=== PATIENT | female | born 1980 ===

== ENCOUNTER 2021-12-28 08:51 | Observation (INO) ==
[2021-12-28] MEDS ORDERED: GLUCAGON 1 MG VIAL IM PRN (13:24)
[2021-12-28] MEDS ORDERED: ONDANSETRON 4 MG/2 ML VIAL IV PRN (13:28)
[2021-12-28] MEDS ORDERED: NITROGLYCERIN SL 0.4 MG TABLET SL PRN (13:28)
[2021-12-28] MEDS ORDERED: DEXTROSE 10% 250 ML BAG IV PRN (13:46)
[2021-12-28 14:14] LABS: Basophils % 0.2 % (0.0-0.8); Eosinophils # 0.1 10*3/uL (0.0-0.87); Eosinophils % 0.8 % (0.00-10.9); Hemoglobin 11.8 GM/DL (12.0-16.0); Immature Granulocytes % 0.4 %; Immature Granulocytes Absolute 0.04 #; Lymphocytes # 3.3 10*3/uL (1.4-4.0); Lymphocytes % 31.3 % (21.3-54.2); Mean Corpuscular HGB Conc 32.8 GM/DL (32-36); Mean Corpuscular Volume 90.9 FL (87-102); Mean Platelet Volume 10.7 FL (9.6-12.0); Monocytes % 6.1 % (1.7-12.7); Neutrophils % 61.2 % (38.7-73.9); Platelet Count 239 T/CUMM (130-400); Red Blood Count 3.96 MC/CUMM (3.8-5.5); Red Cell Distribution Width 12.5 % (9.3-17.3); White Blood Count 10.4 T/CUMM (4-12)
[2021-12-28 14:31] LABS: Alanine Aminotransferase 23 U/L (13-56); Albumin 2.7 G/DL (3.4-5.0); Alkaline Phosphatase 166 U/L (45-117); Aspartate Amino Transferase 19 U/L (0-37); Bilirubin,Total < 0.39 MG/DL (0.20-1.00); Blood Urea Nitrogen 16 MG/DL (7-18); Calcium 8.1 MG/DL (8.5-10.1); Carbon Dioxide 23 MMOL/L (21-32); Estimated Glom Filtration Rate 109 ML/MIN; Glucose 245 MG/DL (74-106); Osmolality,Calculated 283.7 MOS/KG (273-304); Potassium 3.9 MMOL/L (3.5-5.1); Sodium 138 MMOL/L (136-145); Total Protein 7.4 G/DL (6.4-8.2)
[2021-12-28] MEDS: ENOXAPARIN 120 MG/0.8 ML SYRINGE SUBCUT SCH (15:23)
[2021-12-28] MEDS: FUROSEMIDE 40 MG/4 ML VIAL IV SCH (15:24)
[2021-12-28] MEDS: INSULIN LISPRO 100 UNIT/ML SUBCUT SCH (16:15)
[2021-12-28] MEDS: INSULIN REGULAR 100 UNIT/ML SUBCUT SCH ×2 (16:18→21:17)
[2021-12-28 17:11] LABS: Barbiturates Screen,Urine Negative (Negative); Benzodiazepines Screen,Urine Negative (Negative); Cannabinoid Screen,Urine Negative (Negative); Opiate Screen,Urine Positive (Negative); Phencyclidine Screen,Urine Negative (Negative)
[2021-12-28] MEDS ORDERED: INSULIN GLARGINE 100 UNIT/ML SUBCUT SCH (21:00)
[2021-12-28] MEDS ORDERED: hydrALAZINE 10 MG TABLET PO SCH (21:00)
[2021-12-28] MEDS ORDERED: carvediloL 12.5 MG TABLET PO SCH (21:00)
[2021-12-29] MEDS ORDERED: TOPIRAMATE 25 MG TABLET PO ONE (04:34)
[2021-12-29] MEDS: ENOXAPARIN 120 MG/0.8 ML SYRINGE SUBCUT SCH (05:07)
[2021-12-29 06:06] LABS: Basophils % 0.2 % (0.0-0.8); Eosinophils # 0.1 10*3/uL (0.0-0.87); Eosinophils % 1.5 % (0.00-10.9); Hematocrit 35.5 VOL% (35.7-47.0); Hemoglobin 11.6 GM/DL (12.0-16.0); Immature Granulocytes % 0.3 %; Immature Granulocytes Absolute 0.03 #; Lymphocytes # 3.6 10*3/uL (1.4-4.0); Lymphocytes % 38.7 % (21.3-54.2); Mean Corpuscular HGB Conc 32.7 GM/DL (32-36); Mean Corpuscular Volume 91.5 FL (87-102); Mean Platelet Volume 11.9 FL (9.6-12.0); Monocytes % 6.7 % (1.7-12.7); Neutrophils % 52.6 % (38.7-73.9); Platelet Count 243 T/CUMM (130-400); Red Blood Count 3.88 MC/CUMM (3.8-5.5); Red Cell Distribution Width 12.8 % (9.3-17.3); White Blood Count 9.3 T/CUMM (4-12)
[2021-12-29 06:07] LABS: PT Patient Result 11.4 SECS (10.5-12.0); Partial Thromboplastin Time 33.2 SECS (23.8-32.1)
[2021-12-29 06:33] LABS: Alanine Aminotransferase 19 U/L (13-56); Albumin 2.6 G/DL (3.4-5.0); Alkaline Phosphatase 151 U/L (45-117); Aspartate Amino Transferase 26 U/L (0-37); Bilirubin,Total < 0.39 MG/DL (0.20-1.00); Blood Urea Nitrogen 21 MG/DL (7-18); Calcium 8.4 MG/DL (8.5-10.1); Carbon Dioxide 25 MMOL/L (21-32); Estimated Glom Filtration Rate 95 ML/MIN; Glucose 193 MG/DL (74-106); HDL Cholesterol 28 MG/DL (40-60); Osmolality,Calculated 282.7 MOS/KG (273-304); Potassium 3.6 MMOL/L (3.5-5.1); Risk Ratio 4.39; Sodium 138 MMOL/L (136-145); Total Protein 7.2 G/DL (6.4-8.2); Triglycerides 171 MG/DL (2-150); VLDL Cholesterol 34.2 MG/DL
[2021-12-29 08:34] VITALS: BP 159/63
[2021-12-29] MEDS: INSULIN REGULAR 100 UNIT/ML SUBCUT SCH (08:38)
[2021-12-29] MEDS ORDERED: lisinopriL 5 MG TABLET PO SCH (09:00)
[2021-12-29] MEDS ORDERED: BACILLUS COAGULANS CAPLET PO SCH (09:00)
[2021-12-29] MEDS ORDERED: CETIRIZINE 10 MG TABLET PO SCH (09:00)
[2021-12-29] MEDS ORDERED: TOPIRAMATE 25 MG TABLET PO SCH (09:00)
[2021-12-29] MEDS ORDERED: ROSUVASTATIN 20 MG TABLET PO SCH (09:00)
[2021-12-29] MEDS ORDERED: PANTOPRAZOLE 40 MG TABLET PO SCH (09:00)
[2021-12-29] MEDS ORDERED: FUROSEMIDE 40 MG TABLET PO SCH (09:00)
[2021-12-29] MEDS ORDERED: carvediloL 25 MG TABLET PO SCH (09:00)
[2021-12-29] MEDS ORDERED: hydroCHLOROthiazide 12.5 MG CAPSULE PO SCH (09:00)
[2021-12-29] MEDS ORDERED: ASPIRIN EC 325 MG TABLET PO SCH (09:00)
[2021-12-29] MEDS ORDERED: lisinopriL 2.5 MG TABLET PO SCH (09:00)
[2021-12-29] MEDS ORDERED: amLODIPine 2.5 MG TABLET PO SCH (09:00)
[2021-12-29] MEDS: INSULIN LISPRO 100 UNIT/ML SUBCUT SCH (09:01)
[2021-12-29] MEDS: FUROSEMIDE 40 MG/4 ML VIAL IV SCH (09:02)
== END 2021-12-29 12:59 | disposition home or self-care (01) ==
LOC: N.TELES → SUATTDRO 11:28
PROVIDERS: ADMIT Internal Medicine; ATTEND Internal Medicine

== ENCOUNTER 2022-09-15 01:03 | Inpatient (IN) ==
[2022-09-15 01:53] LABS: Basophils % 0.2 % (0.0-0.8); Eosinophils # 0.2 10*3/uL (0.0-0.87); Eosinophils % 1.9 % (0.00-10.9); Hematocrit 35.9 VOL% (35.7-47.0); Hemoglobin 11.8 GM/DL (12.0-16.0); Immature Granulocytes % 0.3 %; Immature Granulocytes Absolute 0.04 #; Lymphocytes # 5.4 10*3/uL (1.4-4.0); Lymphocytes % 45.3 % (21.3-54.2); Mean Corpuscular HGB Conc 32.9 GM/DL (32-36); Mean Corpuscular Volume 91.1 FL (87-102); Mean Platelet Volume 11.1 FL (9.6-12.0); Monocytes # 0.8 10*3/uL (0.11-0.8); Monocytes % 6.3 % (1.7-12.7); Platelet Count 249 T/CUMM (130-400); Red Blood Count 3.94 MC/CUMM (3.8-5.5); Red Cell Distribution Width 13.4 % (9.3-17.3)
[2022-09-15 02:07] LABS: Alanine Aminotransferase 41 U/L (13-56); Albumin 3.1 G/DL (3.4-5.0); Alkaline Phosphatase 199 U/L (45-117); Aspartate Amino Transferase 44 U/L (0-37); Bilirubin,Total < 0.39 MG/DL (0.20-1.00); Blood Urea Nitrogen 23 MG/DL (7-18); Calcium 8.8 MG/DL (8.5-10.1); Carbon Dioxide 25 MMOL/L (21-32); Chloride 106 MMOL/L (98-107); Glucose 222 MG/DL (74-106); Osmolality,Calculated 283.8 MOS/KG (273-304); Sodium 137 MMOL/L (136-145); Total Protein 8.6 G/DL (6.4-8.2)
[2022-09-15] MEDS ORDERED: POTASSIUM CHLORIDE 20 MEQ TABLET PO STA (02:36)
[2022-09-15] MEDS ORDERED: ONDANSETRON 4 MG/2 ML VIAL IV PRN (03:41)
[2022-09-15] MEDS ORDERED: hydrALAZINE 20 MG/1 ML VIAL IV PRN (03:41)
[2022-09-15] MEDS ORDERED: FUROSEMIDE 40 MG/4 ML VIAL IV STA (03:41)
[2022-09-15] MEDS ORDERED: ACETAMINOPHEN 325 MG TABLET PO PRN (03:41)
[2022-09-15] MEDS ORDERED: ENOXAPARIN 100 MG/ML SYRINGE SUBCUT STA (03:41)
[2022-09-15 04:52] LABS: Risk Ratio 3.13; Thyroid Stimulating Hormone 3.23 uIU/ml (0.358-3.74); VLDL Cholesterol 31.4 MG/DL
[2022-09-15] MEDS ORDERED: POTASSIUM CHLORIDE 20 MEQ TABLET PO PRN (04:53)
[2022-09-15] MEDS ORDERED: diphenhydrAMINE CAP 50 MG CAPSULE PO ONE (09:21)
[2022-09-15] MEDS ORDERED: DIAZEPAM 5 MG TABLET PO ONE (09:21)
[2022-09-15] MEDS ORDERED: NITROGLYCERIN SL 0.4 MG TABLET SL PRN (09:31)
[2022-09-15] MEDS: INSULIN LISPRO 100 UNIT/ML SUBCUT SCH ×6 (09:37→22:23)
[2022-09-15] MEDS: PANTOPRAZOLE 40 MG TABLET PO SCH (09:48)
[2022-09-15 09:49] LABS: Calcium 8.6 MG/DL (8.5-10.1); Osmolality,Calculated 287.3 MOS/KG (273-304); Potassium 3.8 MMOL/L (3.5-5.1)
[2022-09-15] MEDS ORDERED: ALBUTEROL 2.5 MG/3 ML NEB RESP TX PRN (10:24)
[2022-09-15] MEDS: SODIUM CHLORIDE 0.45% 1,000 ML IV SCH ×3 (11:34→22:31)
[2022-09-15] MEDS: CLOPIDOGREL 75 MG TABLET PO SCH (11:34)
[2022-09-15] MEDS: ASPIRIN CHEW 81 MG TABLET PO SCH (11:35)
[2022-09-15] MEDS ORDERED: HYDROmorphone 1 MG/1 ML SYRINGE ONE ×3 (11:55→12:29)
[2022-09-15] MEDS ORDERED: MIDAZOLAM 2 MG/2 ML VIAL ONE (11:55)
[2022-09-15] MEDS ORDERED: ENOXAPARIN 30 MG/0.3 ML SYRINGE ONE (12:16)
[2022-09-15] MEDS ORDERED: LABETALOL 20 MG/4 ML SYRINGE IV ONE (12:31)
[2022-09-15] MEDS ORDERED: CLOPIDOGREL 300 MG TABLET ONE (12:33)
[2022-09-15] MEDS: MORPHINE 2 MG/1 ML SYRINGE IV PRN ×2 (16:28→22:32)
[2022-09-15] MEDS ORDERED: MORPHINE 2 MG/1 ML SYRINGE IV ONE (16:31)
[2022-09-15] MEDS ORDERED: KETOROLAC 30 MG/1 ML VIAL IV PRN (18:47)
[2022-09-15] MEDS: BACILLUS COAGULANS CAPLET PO SCH (21:00)
[2022-09-15] MEDS ORDERED: NON-FORMULARY MEDICATION (Omeprazole 20 MG capsule,delayed release(DR/EC)) PO SCH (21:00)
[2022-09-15] MEDS: carvediloL 3.125 MG TABLET PO SCH (21:01)
[2022-09-15] MEDS: ROSUVASTATIN 20 MG TABLET PO SCH (21:02)
[2022-09-15] MEDS: INSULIN GLARGINE 100 UNIT/ML SUBCUT SCH (21:05)
[2022-09-15] MEDS: amLODIPine 5 MG TABLET PO SCH (21:10)
[2022-09-15] MEDS: lisinopriL 20 MG TABLET PO SCH (21:11)
[2022-09-15] MEDS: CETIRIZINE 10 MG TABLET PO SCH (21:12)
[2022-09-15] MEDS: TOPIRAMATE 25 MG TABLET PO SCH (21:12)
[2022-09-16] MEDS: SODIUM CHLORIDE 0.45% 1,000 ML IV SCH ×2 (03:00→09:20)
[2022-09-16] MEDS: MORPHINE 2 MG/1 ML SYRINGE IV PRN ×3 (04:43→18:34)
[2022-09-16 05:20] LABS: Basophils % 0.2 % (0.0-0.8); Eosinophils # 0.1 10*3/uL (0.0-0.87); Eosinophils % 0.8 % (0.00-10.9); Hematocrit 23.8 VOL% (35.7-47.0); Hemoglobin 7.8 GM/DL (12.0-16.0); Immature Granulocytes % 0.4 %; Immature Granulocytes Absolute 0.05 #; Lymphocytes # 4.6 10*3/uL (1.4-4.0); Lymphocytes % 35.3 % (21.3-54.2); Mean Corpuscular HGB Conc 32.8 GM/DL (32-36); Mean Corpuscular Volume 92.6 FL (87-102); Mean Platelet Volume 11.1 FL (9.6-12.0); Monocytes # 0.9 10*3/uL (0.11-0.8); Monocytes % 6.8 % (1.7-12.7); Neutrophils % 56.5 % (38.7-73.9); Platelet Count 233 T/CUMM (130-400); Red Blood Count 2.57 MC/CUMM (3.8-5.5); Red Cell Distribution Width 13.3 % (9.3-17.3); White Blood Count 12.9 T/CUMM (4-12)
[2022-09-16 05:32] LABS: Calcium 8.1 MG/DL (8.5-10.1); Osmolality,Calculated 282.7 MOS/KG (273-304); Potassium 3.5 MMOL/L (3.5-5.1)
[2022-09-16] MEDS ORDERED: SODIUM CHLORIDE 0.9% 1,000 ML IV PRN ×2 (07:46→12:00)
[2022-09-16] MEDS: FUROSEMIDE 40 MG TABLET PO SCH (09:19)
[2022-09-16] MEDS: PANTOPRAZOLE 40 MG TABLET PO SCH (09:19)
[2022-09-16] MEDS: CLOPIDOGREL 75 MG TABLET PO SCH (09:19)
[2022-09-16] MEDS: INSULIN LISPRO 100 UNIT/ML SUBCUT SCH ×7 (09:19→21:49)
[2022-09-16] MEDS: ASPIRIN CHEW 81 MG TABLET PO SCH (09:19)
[2022-09-16] MEDS ORDERED: SODIUM CHLORIDE 0.45% 1,000 ML IV SCH (09:30)
[2022-09-16] MEDS: carvediloL 3.125 MG TABLET PO SCH (10:21)
[2022-09-16 11:57] LABS: CKMB % 5.97 %
[2022-09-16 12:02] LABS: High Sensitive Troponin I* 3303.2 ng/L (0-54)
[2022-09-16] MEDS ORDERED: HYDROmorphone 1 MG/1 ML SYRINGE IV ONE (12:23)
[2022-09-16] MEDS ORDERED: SODIUM CHLORIDE 0.9% 1,000 ML IV ONE (12:57)
[2022-09-16] MEDS ORDERED: diphenhydrAMINE CAP 50 MG CAPSULE PO ONE (14:00)
[2022-09-16] MEDS ORDERED: FAMOTIDINE 20 MG/2 ML VIAL IV ONE (14:01)
[2022-09-16] MEDS ORDERED: methylPREDNISolone SOD SUC 125 MG/2 ML VIAL IV ONE (14:01)
[2022-09-16 14:16] LABS: CKMB % 5.79 %; High Sensitive Troponin I* 3950.4 ng/L (0-54)
[2022-09-16 16:34] LABS: Bilirubin,Urine Negative (Negative); Blood, Urine Negative (Negative); Glucose,Urine (UA) Negative (Negative); Ketones,Urine Negative (Negative); Nitrite,Urine Negative (Negative); Protein,Urine 30 mg/dL (Negative); Urine Appearance Clear (Clear); Urine Color Yellow (Yellow); Urine Specific Gravity 1.015 (1.001-1.035); Urine Urobilinogen 0.2 eU/dL (<2.0); Urine pH 5.5 (4.5-8.0)
[2022-09-16 16:35] LABS: RBC,Urine <1 /HPF (0-4); Squamous Epithelial Cell,Urine Occasional /HPF (0-10)
[2022-09-16 16:36] LABS: Mucus,Urine Occasional /LPF (Occasional)
[2022-09-16] MEDS: carvediloL 6.25 MG TABLET PO SCH (17:51)
[2022-09-16] MEDS: ROSUVASTATIN 20 MG TABLET PO SCH (20:45)
[2022-09-16] MEDS: TOPIRAMATE 25 MG TABLET PO SCH (20:45)
[2022-09-16 20:47] LABS: Bilirubin,Total < 0.39 MG/DL (0.20-1.00); Blood Urea Nitrogen 20 MG/DL (7-18)
[2022-09-16] MEDS: CETIRIZINE 10 MG TABLET PO SCH (20:47)
[2022-09-16] MEDS: BACILLUS COAGULANS CAPLET PO SCH (20:47)
[2022-09-16] MEDS: lisinopriL 20 MG TABLET PO SCH (20:47)
[2022-09-16] MEDS: amLODIPine 5 MG TABLET PO SCH (20:47)
[2022-09-16] MEDS: INSULIN GLARGINE 100 UNIT/ML SUBCUT SCH (21:50)
[2022-09-17] MEDS: MORPHINE 2 MG/1 ML SYRINGE IV PRN ×4 (04:19→23:38)
[2022-09-17 05:19] LABS: Basophils % 0.1 % (0.0-0.8); Hematocrit 21.7 VOL% (35.7-47.0); Hemoglobin 7.1 GM/DL (12.0-16.0); Immature Granulocytes % 0.5 %; Immature Granulocytes Absolute 0.06 #; Lymphocytes # 1.9 10*3/uL (1.4-4.0); Lymphocytes % 16.2 % (21.3-54.2); Mean Corpuscular HGB Conc 32.7 GM/DL (32-36); Mean Corpuscular Volume 92.3 FL (87-102); Mean Platelet Volume 10.5 FL (9.6-12.0); Monocytes # 1.1 10*3/uL (0.11-0.8); Monocytes % 9.2 % (1.7-12.7); Platelet Count 215 T/CUMM (130-400); Red Blood Count 2.35 MC/CUMM (3.8-5.5); Red Cell Distribution Width 13.3 % (9.3-17.3); White Blood Count 11.7 T/CUMM (4-12)
[2022-09-17 05:36] LABS: Calcium 8.3 MG/DL (8.5-10.1); Osmolality,Calculated 289.7 MOS/KG (273-304); Potassium 3.6 MMOL/L (3.5-5.1)
[2022-09-17 08:12] LABS: % Iron Saturation 15.5 % (18-50); Ferritin 68.4 ng/mL (8-252)
[2022-09-17 08:18] LABS: Vitamin B12 337 PG/ML (211-911)
[2022-09-17 08:22] LABS: Basophils % 0.1 % (0.0-0.8); Hematocrit 22.6 VOL% (35.7-47.0); Hemoglobin 7.2 GM/DL (12.0-16.0); Immature Granulocytes % 0.6 %; Immature Granulocytes Absolute 0.08 #; Lymphocytes % 21.8 % (21.3-54.2); Mean Corpuscular HGB Conc 31.9 GM/DL (32-36); Mean Platelet Volume 10.6 FL (9.6-12.0); Monocytes # 1.2 10*3/uL (0.11-0.8); Monocytes % 8.7 % (1.7-12.7); Neutrophils % 68.8 % (38.7-73.9); Platelet Count 223 T/CUMM (130-400); Red Blood Count 2.43 MC/CUMM (3.8-5.5); Red Cell Distribution Width 13.4 % (9.3-17.3); White Blood Count 13.6 T/CUMM (4-12)
[2022-09-17] MEDS: PANTOPRAZOLE 40 MG TABLET PO SCH (08:53)
[2022-09-17] MEDS: FUROSEMIDE 40 MG TABLET PO SCH (08:53)
[2022-09-17] MEDS: CLOPIDOGREL 75 MG TABLET PO SCH (08:53)
[2022-09-17] MEDS: ASPIRIN CHEW 81 MG TABLET PO SCH (08:53)
[2022-09-17] MEDS: carvediloL 6.25 MG TABLET PO SCH ×2 (08:54→17:48)
[2022-09-17] MEDS: INSULIN LISPRO 100 UNIT/ML SUBCUT SCH ×7 (08:55→21:30)
[2022-09-17 09:43] LABS: Sedimentation Rate-Westergren 133 MM/HR (0-20)
[2022-09-17] MEDS ORDERED: ACETAMINOPHEN 325 MG TABLET PO ONE (13:00)
[2022-09-17] MEDS ORDERED: methylPREDNISolone SOD SUC 125 MG/2 ML VIAL IV ONE (13:00)
[2022-09-17] MEDS ORDERED: SODIUM CHLORIDE 0.9% 1,000 ML IV PRN (13:01)
[2022-09-17] MEDS ORDERED: FERRIC GLUCONATE COMPLEX 125 MG in SODIUM CHLORIDE 0.9% 100 ML IV ONE (14:00)
[2022-09-17] MEDS ORDERED: FUROSEMIDE 40 MG/4 ML VIAL IV ONE ×2 (19:31→20:00)
[2022-09-17] MEDS ORDERED: CLORAZEPATE 3.75 MG TABLET PO PRN (19:39)
[2022-09-17] MEDS: ALBUTEROL/IPRATROPIUM 3 ML NEB RESP TX PRN (19:42)
[2022-09-17] MEDS: BACILLUS COAGULANS CAPLET PO SCH (21:30)
[2022-09-17] MEDS: ROSUVASTATIN 20 MG TABLET PO SCH (21:30)
[2022-09-17] MEDS: INSULIN GLARGINE 100 UNIT/ML SUBCUT SCH (21:31)
[2022-09-17] MEDS: TOPIRAMATE 25 MG TABLET PO SCH (21:31)
[2022-09-17] MEDS: CETIRIZINE 10 MG TABLET PO SCH (21:31)
[2022-09-17] MEDS: amLODIPine 5 MG TABLET PO SCH (21:31)
[2022-09-18] MEDS: ALBUTEROL/IPRATROPIUM 3 ML NEB RESP TX PRN (01:09)
[2022-09-18] MEDS: MORPHINE 2 MG/1 ML SYRINGE IV PRN ×3 (03:57→21:44)
[2022-09-18 05:04] LABS: Basophils % 0.1 % (0.0-0.8); Hematocrit 25.3 VOL% (35.7-47.0); Hemoglobin 8.2 GM/DL (12.0-16.0); Immature Granulocytes % 1.9 %; Immature Granulocytes Absolute 0.24 #; Lymphocytes # 1.7 10*3/uL (1.4-4.0); Lymphocytes % 13.1 % (21.3-54.2); Mean Corpuscular HGB Conc 32.4 GM/DL (32-36); Monocytes # 0.6 10*3/uL (0.11-0.8); Monocytes % 4.4 % (1.7-12.7); Neutrophils % 80.5 % (38.7-73.9); Platelet Count 229 T/CUMM (130-400); Red Blood Count 2.81 MC/CUMM (3.8-5.5); Red Cell Distribution Width 14.4 % (9.3-17.3); White Blood Count 12.8 T/CUMM (4-12)
[2022-09-18 05:27] LABS: Calcium 8.4 MG/DL (8.5-10.1); Osmolality,Calculated 298.3 MOS/KG (273-304)
[2022-09-18] MEDS: PANTOPRAZOLE 40 MG TABLET PO SCH (08:33)
[2022-09-18] MEDS: CLOPIDOGREL 75 MG TABLET PO SCH (08:33)
[2022-09-18] MEDS: carvediloL 6.25 MG TABLET PO SCH ×2 (08:33→18:56)
[2022-09-18] MEDS: ASPIRIN CHEW 81 MG TABLET PO SCH (08:33)
[2022-09-18] MEDS: FUROSEMIDE 40 MG TABLET PO SCH (08:34)
[2022-09-18] MEDS: INSULIN LISPRO 100 UNIT/ML SUBCUT SCH ×7 (08:35→21:45)
[2022-09-18] MEDS ORDERED: FUROSEMIDE 40 MG/4 ML VIAL IV ONE (11:05)
[2022-09-18] MEDS ORDERED: SODIUM CHLORIDE 0.9% 1,000 ML IV PRN (11:12)
[2022-09-18] MEDS ORDERED: methylPREDNISolone SOD SUC 125 MG/2 ML VIAL IV ONE (11:13)
[2022-09-18] MEDS ORDERED: diphenhydrAMINE CAP 50 MG CAPSULE PO ONE (11:13)
[2022-09-18] MEDS ORDERED: FAMOTIDINE 20 MG/2 ML VIAL IV ONE (11:14)
[2022-09-18] MEDS: BACILLUS COAGULANS CAPLET PO SCH (21:43)
[2022-09-18] MEDS: ROSUVASTATIN 20 MG TABLET PO SCH (21:43)
[2022-09-18] MEDS: TOPIRAMATE 25 MG TABLET PO SCH (21:44)
[2022-09-18] MEDS: CETIRIZINE 10 MG TABLET PO SCH (21:44)
[2022-09-18] MEDS: amLODIPine 5 MG TABLET PO SCH (21:44)
[2022-09-18] MEDS: INSULIN GLARGINE 100 UNIT/ML SUBCUT SCH (21:45)
[2022-09-19 04:43] LABS: Basophils % 0.1 % (0.0-0.8); Hematocrit 29.1 VOL% (35.7-47.0); Hemoglobin 9.6 GM/DL (12.0-16.0); Immature Granulocytes % 1.8 %; Immature Granulocytes Absolute 0.22 #; Lymphocytes # 1.7 10*3/uL (1.4-4.0); Lymphocytes % 13.5 % (21.3-54.2); Mean Corpuscular Volume 90.9 FL (87-102); Mean Platelet Volume 10.9 FL (9.6-12.0); Monocytes # 0.7 10*3/uL (0.11-0.8); Monocytes % 5.3 % (1.7-12.7); NRBC # 0.02 10*3/uL; Neutrophils % 79.3 % (38.7-73.9); Platelet Count 269 T/CUMM (130-400); Red Cell Distribution Width 14.5 % (9.3-17.3); White Blood Count 12.6 T/CUMM (4-12)
[2022-09-19 05:00] LABS: Calcium 8.6 MG/DL (8.5-10.1); Osmolality,Calculated 295.4 MOS/KG (273-304)
[2022-09-19] MEDS: FUROSEMIDE 40 MG TABLET PO SCH (08:10)
[2022-09-19] MEDS: MORPHINE 2 MG/1 ML SYRINGE IV PRN ×3 (08:10→23:44)
[2022-09-19] MEDS: carvediloL 6.25 MG TABLET PO SCH (08:10)
[2022-09-19] MEDS: PANTOPRAZOLE 40 MG TABLET PO SCH (08:10)
[2022-09-19] MEDS: ASPIRIN CHEW 81 MG TABLET PO SCH (08:10)
[2022-09-19] MEDS: CLOPIDOGREL 75 MG TABLET PO SCH (08:10)
[2022-09-19] MEDS: FERRIC GLUCONATE COMPLEX 125 MG in SODIUM CHLORIDE 0.9% 100 ML IV SCH (09:44)
[2022-09-19] MEDS: INSULIN LISPRO 100 UNIT/ML SUBCUT SCH ×7 (09:44→20:54)
[2022-09-19] MEDS ORDERED: FUROSEMIDE 40 MG/4 ML VIAL IV ONE (09:50)
[2022-09-19] MEDS: carvediloL 12.5 MG TABLET PO SCH (17:15)
[2022-09-19] MEDS: CETIRIZINE 10 MG TABLET PO SCH (20:54)
[2022-09-19] MEDS: BACILLUS COAGULANS CAPLET PO SCH (20:54)
[2022-09-19] MEDS: ROSUVASTATIN 20 MG TABLET PO SCH (20:54)
[2022-09-19] MEDS: TOPIRAMATE 25 MG TABLET PO SCH (20:54)
[2022-09-19] MEDS: amLODIPine 5 MG TABLET PO SCH (20:54)
[2022-09-19] MEDS: INSULIN GLARGINE 100 UNIT/ML SUBCUT SCH (20:55)
[2022-09-20 06:17] LABS: Calcium 8.4 MG/DL (8.5-10.1); Osmolality,Calculated 290.1 MOS/KG (273-304); Potassium 4.3 MMOL/L (3.5-5.1)
[2022-09-20] MEDS: MORPHINE 2 MG/1 ML SYRINGE IV PRN ×3 (06:32→23:30)
[2022-09-20 06:45] LABS: Basophils # 0.1 10*3/uL (0.0-0.2); Basophils % 0.3 % (0.0-0.8); Eosinophils # 0.5 10*3/uL (0.0-0.87); Eosinophils % 2.9 % (0.00-10.9); Hematocrit 28.5 VOL% (35.7-47.0); Hemoglobin 9.3 GM/DL (12.0-16.0); Immature Granulocytes % 0.7 %; Immature Granulocytes Absolute 0.12 #; Lymphocytes # 7.1 10*3/uL (1.4-4.0); Lymphocytes % 43.2 % (21.3-54.2); Mean Corpuscular HGB Conc 32.6 GM/DL (32-36); Mean Corpuscular Volume 92.2 FL (87-102); Mean Platelet Volume 10.4 FL (9.6-12.0); Monocytes # 1.1 10*3/uL (0.11-0.8); Monocytes % 6.8 % (1.7-12.7); Neutrophils % 46.1 % (38.7-73.9); Platelet Count 290 T/CUMM (130-400); Red Blood Count 3.09 MC/CUMM (3.8-5.5); White Blood Count 16.4 T/CUMM (4-12)
[2022-09-20 07:06] LABS: Eosinophils 5 % (0-10); Hypochromia Slight; Lymphocytes 38 % (20-55); Microcytosis 1+; Total Cells Counted 100
[2022-09-20 07:07] LABS: Ovalocytes Slight; Platelet Estimate Normal; Polychromasia Slight
[2022-09-20 08:46] LABS: Hemoglobin A1 (Alkaline) 97.2 % (96.5-98.5); Hemoglobin A2 (Alkaline) 2.8 % (1.5-3.5)
[2022-09-20] MEDS: INSULIN LISPRO 100 UNIT/ML SUBCUT SCH ×6 (09:14→21:33)
[2022-09-20] MEDS ORDERED: Semaglutide [Ozempic] 0.25 mg or 0.5 mg(2 mg/1.5 mL) Pen Injecto SUBCUT SCH (10:15)
[2022-09-20] MEDS ORDERED: ceFAZolin 2,000 MG/50 ML DUPLEX IV ONE (11:51)
[2022-09-20] MEDS: CLOPIDOGREL 75 MG TABLET PO SCH (12:05)
[2022-09-20] MEDS ORDERED: fentaNYL 100 MCG/2 ML VIAL ONE (12:28)
[2022-09-20] MEDS ORDERED: ONDANSETRON 4 MG/2 ML VIAL ONE (12:28)
[2022-09-20] MEDS ORDERED: propofoL 200 MG/20 ML VIAL IV ONE (12:28)
[2022-09-20] MEDS ORDERED: MIDAZOLAM 2 MG/2 ML VIAL ONE (12:28)
[2022-09-20] MEDS ORDERED: LIDOCAINE 2% 5 ML VIAL ONE (12:28)
[2022-09-20] MEDS ORDERED: LACTATED RINGERS 1,000 ML IV SCH (12:30)
[2022-09-20] MEDS ORDERED: BUPIVACAINE MPF 0.25% 10 ML VIAL ONE (12:33)
[2022-09-20] MEDS ORDERED: LIDOCAINE 1%/EPI INJ 20 ML VIAL ONE ×2 (12:34→12:38)
[2022-09-20] MEDS ORDERED: ePHEDrine 50 MG/ML VIAL ONE (13:01)
[2022-09-20] MEDS ORDERED: TISSUE ADHESIVE 1 EACH APPLICATOR TOP ONE (13:15)
[2022-09-20] MEDS ORDERED: ONDANSETRON 4 MG/2 ML VIAL IV PRN (13:55)
[2022-09-20] MEDS: HYDROmorphone 1 MG/1 ML SYRINGE IV PRN ×2 (14:03→14:15)
[2022-09-20] MEDS: ASPIRIN CHEW 81 MG TABLET PO SCH (15:20)
[2022-09-20] MEDS: FUROSEMIDE 40 MG TABLET PO SCH (15:20)
[2022-09-20] MEDS: carvediloL 12.5 MG TABLET PO SCH ×2 (15:20→18:03)
[2022-09-20] MEDS: PANTOPRAZOLE 40 MG TABLET PO SCH (15:21)
[2022-09-20] MEDS: FERRIC GLUCONATE COMPLEX 125 MG in SODIUM CHLORIDE 0.9% 100 ML IV SCH (15:22)
[2022-09-20] MEDS: BACILLUS COAGULANS CAPLET PO SCH (21:27)
[2022-09-20] MEDS: TOPIRAMATE 25 MG TABLET PO SCH (21:27)
[2022-09-20] MEDS: CETIRIZINE 10 MG TABLET PO SCH (21:28)
[2022-09-20] MEDS: ROSUVASTATIN 20 MG TABLET PO SCH (21:28)
[2022-09-20] MEDS: amLODIPine 5 MG TABLET PO SCH (21:28)
[2022-09-20] MEDS: INSULIN GLARGINE 100 UNIT/ML SUBCUT SCH (21:29)
[2022-09-21] MEDS: INSULIN LISPRO 100 UNIT/ML SUBCUT SCH ×9 (00:54→22:01)
[2022-09-21 05:28] LABS: Basophils % 0.3 % (0.0-0.8); Eosinophils # 0.8 10*3/uL (0.0-0.87); Eosinophils % 4.8 % (0.00-10.9); Hemoglobin 9.6 GM/DL (12.0-16.0); Immature Granulocytes % 0.5 %; Immature Granulocytes Absolute 0.08 #; Lymphocytes # 5.4 10*3/uL (1.4-4.0); Lymphocytes % 33.8 % (21.3-54.2); Mean Platelet Volume 10.3 FL (9.6-12.0); Monocytes # 1.1 10*3/uL (0.11-0.8); Monocytes % 7.2 % (1.7-12.7); Neutrophils % 53.4 % (38.7-73.9); Platelet Count 313 T/CUMM (130-400); Red Blood Count 3.19 MC/CUMM (3.8-5.5); Red Cell Distribution Width 14.7 % (9.3-17.3); White Blood Count 15.9 T/CUMM (4-12)
[2022-09-21 05:49] LABS: Calcium 8.2 MG/DL (8.5-10.1)
[2022-09-21] MEDS: CLOPIDOGREL 75 MG TABLET PO SCH (08:39)
[2022-09-21] MEDS: carvediloL 12.5 MG TABLET PO SCH ×2 (08:40→17:02)
[2022-09-21] MEDS: ASPIRIN CHEW 81 MG TABLET PO SCH (08:41)
[2022-09-21] MEDS: PANTOPRAZOLE 40 MG TABLET PO SCH (08:41)
[2022-09-21] MEDS: FUROSEMIDE 40 MG TABLET PO SCH (08:41)
[2022-09-21] MEDS: FERRIC GLUCONATE COMPLEX 125 MG in SODIUM CHLORIDE 0.9% 100 ML IV SCH (09:28)
[2022-09-21] MEDS ORDERED: MORPHINE 2 MG/1 ML SYRINGE IV PRN (12:31)
[2022-09-21] MEDS: CETIRIZINE 10 MG TABLET PO SCH (21:59)
[2022-09-21] MEDS: TOPIRAMATE 25 MG TABLET PO SCH (21:59)
[2022-09-21] MEDS: BACILLUS COAGULANS CAPLET PO SCH (21:59)
[2022-09-21] MEDS: amLODIPine 5 MG TABLET PO SCH (21:59)
[2022-09-21] MEDS: ROSUVASTATIN 20 MG TABLET PO SCH (22:00)
[2022-09-21] MEDS: INSULIN GLARGINE 100 UNIT/ML SUBCUT SCH (22:01)
[2022-09-21] MEDS: MORPHINE 2 MG/1 ML SYRINGE IV PRN (22:02)
[2022-09-22] MEDS: INSULIN LISPRO 100 UNIT/ML SUBCUT SCH ×7 (08:01→21:40)
[2022-09-22 08:26] LABS: Basophils % 0.2 % (0.0-0.8); Eosinophils # 0.5 10*3/uL (0.0-0.87); Eosinophils % 2.9 % (0.00-10.9); Hematocrit 30.3 VOL% (35.7-47.0); Hemoglobin 9.7 GM/DL (12.0-16.0); Immature Granulocytes % 0.6 %; Immature Granulocytes Absolute 0.12 #; Lymphocytes # 4.5 10*3/uL (1.4-4.0); Lymphocytes % 23.6 % (21.3-54.2); Mean Platelet Volume 10.2 FL (9.6-12.0); Monocytes # 1.2 10*3/uL (0.11-0.8); Monocytes % 6.5 % (1.7-12.7); Neutrophils % 66.2 % (38.7-73.9); Platelet Count 342 T/CUMM (130-400); Red Blood Count 3.19 MC/CUMM (3.8-5.5); Red Cell Distribution Width 15.1 % (9.3-17.3); White Blood Count 18.9 T/CUMM (4-12)
[2022-09-22] MEDS: CLOPIDOGREL 75 MG TABLET PO SCH (08:44)
[2022-09-22] MEDS: carvediloL 12.5 MG TABLET PO SCH ×2 (08:44→16:25)
[2022-09-22] MEDS: FERRIC GLUCONATE COMPLEX 125 MG in SODIUM CHLORIDE 0.9% 100 ML IV SCH (08:44)
[2022-09-22] MEDS: PANTOPRAZOLE 40 MG TABLET PO SCH (08:44)
[2022-09-22] MEDS: FUROSEMIDE 40 MG TABLET PO SCH (08:44)
[2022-09-22] MEDS: ASPIRIN CHEW 81 MG TABLET PO SCH (08:44)
[2022-09-22 08:48] LABS: Calcium 8.5 MG/DL (8.5-10.1); Osmolality,Calculated 281.4 MOS/KG (273-304)
[2022-09-22] MEDS: amLODIPine 5 MG TABLET PO SCH (21:40)
[2022-09-22] MEDS: MORPHINE 2 MG/1 ML SYRINGE IV PRN (21:40)
[2022-09-22] MEDS: TOPIRAMATE 25 MG TABLET PO SCH (21:40)
[2022-09-22] MEDS: CETIRIZINE 10 MG TABLET PO SCH (21:40)
[2022-09-22] MEDS: INSULIN GLARGINE 100 UNIT/ML SUBCUT SCH (21:40)
[2022-09-23] MEDS: ROSUVASTATIN 20 MG TABLET PO SCH (00:15)
[2022-09-23] MEDS: BACILLUS COAGULANS CAPLET PO SCH (00:15)
[2022-09-23 00:54] LABS: Mucus,Urine Occasional /LPF (Occasional); RBC,Urine 1 /HPF (0-4); Squamous Epithelial Cell,Urine Occasional /HPF (0-10)
[2022-09-23 00:57] LABS: Bilirubin,Urine Negative (Negative); Blood, Urine Negative (Negative); Glucose,Urine (UA) Negative (Negative); Ketones,Urine Negative (Negative); Nitrite,Urine Negative (Negative); Protein,Urine 100 mg/dL (Negative); Urine Appearance Clear (Clear); Urine Color Yellow (Yellow); Urine Specific Gravity 1.025 (1.001-1.035); Urine Urobilinogen 0.2 eU/dL (<2.0); Urine pH 6.5 (4.5-8.0)
[2022-09-23] MEDS: INSULIN LISPRO 100 UNIT/ML SUBCUT SCH ×4 (07:42→11:44)
[2022-09-23 07:49] VITALS: BP 136/80
[2022-09-23 08:17] LABS: Basophils % 0.1 % (0.0-0.8); Eosinophils # 0.5 10*3/uL (0.0-0.87); Eosinophils % 3.1 % (0.00-10.9); Hematocrit 27.6 VOL% (35.7-47.0); Hemoglobin 8.7 GM/DL (12.0-16.0); Immature Granulocytes % 0.5 %; Immature Granulocytes Absolute 0.08 #; Lymphocytes # 4.5 10*3/uL (1.4-4.0); Lymphocytes % 28.3 % (21.3-54.2); Mean Corpuscular HGB Conc 31.5 GM/DL (32-36); Mean Corpuscular Volume 94.8 FL (87-102); Mean Platelet Volume 10.1 FL (9.6-12.0); Monocytes # 1.1 10*3/uL (0.11-0.8); Platelet Count 303 T/CUMM (130-400); Red Blood Count 2.91 MC/CUMM (3.8-5.5); Red Cell Distribution Width 15.3 % (9.3-17.3)
[2022-09-23 08:38] LABS: Calcium 8.4 MG/DL (8.5-10.1); Osmolality,Calculated 285.3 MOS/KG (273-304); Potassium 4.1 MMOL/L (3.5-5.1)
[2022-09-23] MEDS: carvediloL 12.5 MG TABLET PO SCH (09:16)
[2022-09-23] MEDS: ASPIRIN CHEW 81 MG TABLET PO SCH (09:16)
[2022-09-23] MEDS: PANTOPRAZOLE 40 MG TABLET PO SCH (09:16)
[2022-09-23] MEDS: CLOPIDOGREL 75 MG TABLET PO SCH (09:16)
[2022-09-23] MEDS: FUROSEMIDE 40 MG TABLET PO SCH (09:17)
[2022-09-23] MEDS: FERRIC GLUCONATE COMPLEX 125 MG in SODIUM CHLORIDE 0.9% 100 ML IV SCH (09:18)
== END 2022-09-23 12:49 | disposition home health service (06) | DRG 174 ==
LOC: N.ED 01:03 → N.EDINP 01:03 → SUATTDRO 03:41 → N.TELEN 10:02
PROVIDERS: ADMIT Internal Medicine; ATTEND Internal Medicine

== ENCOUNTER 2022-09-30 13:20 | Inpatient (IN) ==
[2022-09-30] MEDS ORDERED: ONDANSETRON 4 MG/2 ML VIAL ONE (13:57)
[2022-09-30] MEDS ORDERED: PANTOPRAZOLE 40 MG VIAL IV STA (14:21)
[2022-09-30] MEDS ORDERED: ONDANSETRON 4 MG/2 ML VIAL IV STA (14:21)
[2022-09-30] MEDS ORDERED: SODIUM CHLORIDE 0.9% 1,000 ML IV PRN (14:22)
[2022-09-30 14:46] LABS: Basophils % 0.2 % (0.0-0.8); Eosinophils % 0.1 % (0.00-10.9); Hematocrit 24.4 VOL% (35.7-47.0); Hemoglobin 7.5 GM/DL (12.0-16.0); Immature Granulocytes % 0.6 %; Immature Granulocytes Absolute 0.09 #; Lymphocytes # 1.8 10*3/uL (1.4-4.0); Lymphocytes % 11.4 % (21.3-54.2); Mean Corpuscular HGB Conc 30.7 GM/DL (32-36); Mean Corpuscular Volume 98.4 FL (87-102); Mean Platelet Volume 9.9 FL (9.6-12.0); Monocytes # 0.5 10*3/uL (0.11-0.8); Monocytes % 3.1 % (1.7-12.7); Neutrophils % 84.6 % (38.7-73.9); Platelet Count 320 T/CUMM (130-400); Red Blood Count 2.48 MC/CUMM (3.8-5.5); Red Cell Distribution Width 15.4 % (9.3-17.3)
[2022-09-30 15:15] LABS: Albumin 2.5 G/DL (3.4-5.0); Bilirubin,Total 0.5 MG/DL (0.20-1.00); Calcium 8.2 MG/DL (8.5-10.1); Osmolality,Calculated 291.1 MOS/KG (273-304); Potassium 3.7 MMOL/L (3.5-5.1); Total Protein 6.8 G/DL (6.4-8.2)
[2022-09-30] MEDS ORDERED: ACETAMINOPHEN 325 MG TABLET PO PRN (15:30)
[2022-09-30] MEDS ORDERED: DOCUSATE SODIUM 100 MG CAPSULE PO PRN (15:30)
[2022-09-30] MEDS ORDERED: ALBUTEROL 2.5 MG/3 ML NEB RESP TX PRN (15:30)
[2022-09-30] MEDS ORDERED: guaiFENesin/DM ER 600-30 MG TABLET PO PRN (15:30)
[2022-09-30] MEDS ORDERED: hydrALAZINE 20 MG/1 ML VIAL IV PRN (15:30)
[2022-09-30] MEDS: FUROSEMIDE 40 MG/4 ML VIAL IV SCH (16:20)
[2022-09-30 17:01] LABS: Bacteria,Urine Occasional /HPF (Few); Mucus,Urine Occasional /LPF (Occasional); RBC,Urine <1 /HPF (0-4); Squamous Epithelial Cell,Urine Occasional /HPF (0-10)
[2022-09-30 17:03] LABS: Urine Appearance Clear (Clear); Urine Color Yellow (Yellow)
[2022-09-30 17:04] LABS: Bilirubin,Urine Negative (Negative); Blood, Urine Negative (Negative); Glucose,Urine (UA) Negative (Negative); Ketones,Urine Negative (Negative); Nitrite,Urine Negative (Negative); Protein,Urine Trace mg/dL (Negative); Urine Specific Gravity > 1.030 (1.001-1.035); Urine Urobilinogen 0.2 eU/dL (<2.0); Urine pH 5.5 (4.5-8.0)
[2022-09-30] MEDS: ONDANSETRON 4 MG/2 ML VIAL IV PRN (17:50)
[2022-09-30] MEDS: PANTOPRAZOLE 40 MG VIAL IV SCH (22:16)
[2022-10-01 05:03] LABS: Basophils % 0.3 % (0.0-0.8); Eosinophils # 0.1 10*3/uL (0.0-0.87); Eosinophils % 0.8 % (0.00-10.9); Hematocrit 23.5 VOL% (35.7-47.0); Hemoglobin 7.4 GM/DL (12.0-16.0); Immature Granulocytes % 0.6 %; Immature Granulocytes Absolute 0.08 #; Lymphocytes # 4.5 10*3/uL (1.4-4.0); Lymphocytes % 32.4 % (21.3-54.2); Mean Corpuscular HGB Conc 31.5 GM/DL (32-36); Monocytes # 0.9 10*3/uL (0.11-0.8); Monocytes % 6.6 % (1.7-12.7); Neutrophils % 59.3 % (38.7-73.9); Platelet Count 270 T/CUMM (130-400); Red Cell Distribution Width 16.5 % (9.3-17.3)
[2022-10-01 05:18] LABS: Calcium 8.2 MG/DL (8.5-10.1); Osmolality,Calculated 291.1 MOS/KG (273-304); Potassium 3.6 MMOL/L (3.5-5.1)
[2022-10-01] MEDS ORDERED: PANTOPRAZOLE 40 MG TABLET PO SCH (09:00)
[2022-10-01] MEDS: PANTOPRAZOLE 40 MG VIAL IV SCH ×2 (09:49→21:28)
[2022-10-01] MEDS: FUROSEMIDE 40 MG/4 ML VIAL IV SCH ×2 (09:49→15:07)
[2022-10-01] MEDS ORDERED: hydrOXYzine HCL 25 MG TABLET PO PRN (10:38)
[2022-10-01] MEDS ORDERED: CETIRIZINE 10 MG TABLET PO PRN (10:38)
[2022-10-01] MEDS ORDERED: NITROGLYCERIN SL 0.4 MG TABLET SL PRN (11:00)
[2022-10-01] MEDS ORDERED: MIDAZOLAM 2 MG/2 ML VIAL ONE (11:03)
[2022-10-01] MEDS ORDERED: ETOMIDATE 20 MG/10 ML VIAL IV ONE (11:13)
[2022-10-01] MEDS ORDERED: LIDOCAINE 2% 5 ML VIAL ONE (11:13)
[2022-10-01] MEDS ORDERED: propofoL 200 MG/20 ML VIAL IV ONE (11:13)
[2022-10-01] MEDS ORDERED: ONDANSETRON 4 MG/2 ML VIAL ONE (11:13)
[2022-10-01] MEDS: POLYETHYLENE GLYCOL POWDER 17 GM PACK PO SCH ×2 (14:18→21:31)
[2022-10-01] MEDS: carvediloL 12.5 MG TABLET PO SCH (16:32)
[2022-10-01] MEDS ORDERED: amLODIPine 5 MG TABLET PO SCH (21:00)
[2022-10-01] MEDS: ROSUVASTATIN 20 MG TABLET PO SCH (21:30)
[2022-10-01] MEDS: BACILLUS COAGULANS CAPLET PO SCH (21:30)
[2022-10-01] MEDS: ASPIRIN CHEW 81 MG TABLET PO SCH (21:30)
[2022-10-01] MEDS: TOPIRAMATE 25 MG TABLET PO SCH (21:30)
[2022-10-02 05:07] LABS: Basophils # 0.1 10*3/uL (0.0-0.2); Basophils % 0.4 % (0.0-0.8); Eosinophils # 0.5 10*3/uL (0.0-0.87); Eosinophils % 4.3 % (0.00-10.9); Hematocrit 23.9 VOL% (35.7-47.0); Hemoglobin 7.6 GM/DL (12.0-16.0); Immature Granulocytes % 0.8 %; Lymphocytes # 4.2 10*3/uL (1.4-4.0); Lymphocytes % 34.4 % (21.3-54.2); Mean Corpuscular HGB Conc 31.8 GM/DL (32-36); Mean Corpuscular Volume 93.7 FL (87-102); Mean Platelet Volume 10.2 FL (9.6-12.0); Monocytes # 0.8 10*3/uL (0.11-0.8); Monocytes % 6.1 % (1.7-12.7); Platelet Count 281 T/CUMM (130-400); Red Blood Count 2.55 MC/CUMM (3.8-5.5); White Blood Count 12.2 T/CUMM (4-12)
[2022-10-02 05:22] LABS: Calcium 8.5 MG/DL (8.5-10.1); Osmolality,Calculated 295.1 MOS/KG (273-304); Potassium 3.5 MMOL/L (3.5-5.1)
[2022-10-02] MEDS: BACILLUS COAGULANS CAPLET PO SCH ×2 (10:01→22:29)
[2022-10-02] MEDS: CLOPIDOGREL 75 MG TABLET PO SCH (10:01)
[2022-10-02] MEDS: carvediloL 12.5 MG TABLET PO SCH ×2 (10:01→17:15)
[2022-10-02] MEDS: lisinopriL 10 MG TABLET PO SCH (10:01)
[2022-10-02] MEDS: FUROSEMIDE 40 MG/4 ML VIAL IV SCH ×2 (10:02→17:15)
[2022-10-02] MEDS: PANTOPRAZOLE 40 MG VIAL IV SCH ×2 (10:02→22:31)
[2022-10-02] MEDS: POLYETHYLENE GLYCOL POWDER 17 GM PACK PO SCH ×2 (10:06→22:32)
[2022-10-02] MEDS: INSULIN LISPRO 100 UNIT/ML SUBCUT SCH ×2 (18:52→22:31)
[2022-10-02] MEDS: ASPIRIN CHEW 81 MG TABLET PO SCH (22:29)
[2022-10-02] MEDS: TOPIRAMATE 25 MG TABLET PO SCH (22:30)
[2022-10-02] MEDS: ROSUVASTATIN 20 MG TABLET PO SCH (22:30)
[2022-10-02] MEDS: MORPHINE 2 MG/1 ML SYRINGE IV PRN (22:30)
[2022-10-03] MEDS: PANTOPRAZOLE 40 MG VIAL IV SCH ×2 (01:00→21:28)
[2022-10-03 05:51] LABS: Basophils % 0.4 % (0.0-0.8); Eosinophils # 0.5 10*3/uL (0.0-0.87); Hematocrit 25.8 VOL% (35.7-47.0); Immature Granulocytes % 0.7 %; Immature Granulocytes Absolute 0.07 #; Lymphocytes # 3.1 10*3/uL (1.4-4.0); Lymphocytes % 30.7 % (21.3-54.2); Mean Corpuscular Volume 94.5 FL (87-102); Mean Platelet Volume 10.1 FL (9.6-12.0); Monocytes # 0.6 10*3/uL (0.11-0.8); Monocytes % 6.1 % (1.7-12.7); Neutrophils % 57.1 % (38.7-73.9); Platelet Count 276 T/CUMM (130-400); Red Blood Count 2.73 MC/CUMM (3.8-5.5); Red Cell Distribution Width 17.3 % (9.3-17.3); White Blood Count 10.2 T/CUMM (4-12)
[2022-10-03 05:58] LABS: Calcium 8.3 MG/DL (8.5-10.1); Osmolality,Calculated 287.1 MOS/KG (273-304); Potassium 3.6 MMOL/L (3.5-5.1)
[2022-10-03] MEDS: CLOPIDOGREL 75 MG TABLET PO SCH (08:28)
[2022-10-03] MEDS: lisinopriL 10 MG TABLET PO SCH (08:29)
[2022-10-03] MEDS: BACILLUS COAGULANS CAPLET PO SCH ×2 (08:29→21:40)
[2022-10-03] MEDS: carvediloL 12.5 MG TABLET PO SCH ×2 (08:29→17:46)
[2022-10-03] MEDS: INSULIN LISPRO 100 UNIT/ML SUBCUT SCH ×4 (08:30→21:27)
[2022-10-03] MEDS: POLYETHYLENE GLYCOL POWDER 17 GM PACK PO SCH ×2 (08:31→21:27)
[2022-10-03] MEDS: FUROSEMIDE 40 MG/4 ML VIAL IV SCH ×2 (09:00→16:37)
[2022-10-03] MEDS: GABAPENTIN 100 MG CAPSULE PO SCH ×2 (16:57→21:27)
[2022-10-03] MEDS: TOPIRAMATE 25 MG TABLET PO SCH (21:27)
[2022-10-03] MEDS: ROSUVASTATIN 20 MG TABLET PO SCH (21:27)
[2022-10-03] MEDS: ASPIRIN CHEW 81 MG TABLET PO SCH (21:27)
[2022-10-03] MEDS: MORPHINE 2 MG/1 ML SYRINGE IV PRN (21:41)
[2022-10-04 04:39] LABS: Basophils # 0.1 10*3/uL (0.0-0.2); Basophils % 0.5 % (0.0-0.8); Eosinophils # 0.5 10*3/uL (0.0-0.87); Eosinophils % 4.6 % (0.00-10.9); Hematocrit 28.6 VOL% (35.7-47.0); Immature Granulocytes % 0.8 %; Immature Granulocytes Absolute 0.09 #; Lymphocytes # 3.9 10*3/uL (1.4-4.0); Lymphocytes % 34.9 % (21.3-54.2); Mean Corpuscular HGB Conc 31.5 GM/DL (32-36); Mean Corpuscular Volume 94.4 FL (87-102); Mean Platelet Volume 9.8 FL (9.6-12.0); Monocytes # 0.7 10*3/uL (0.11-0.8); Monocytes % 6.2 % (1.7-12.7); Platelet Count 317 T/CUMM (130-400); Red Blood Count 3.03 MC/CUMM (3.8-5.5); Red Cell Distribution Width 17.6 % (9.3-17.3); White Blood Count 11.2 T/CUMM (4-12)
[2022-10-04 04:56] LABS: Calcium 8.7 MG/DL (8.5-10.1); Osmolality,Calculated 284.5 MOS/KG (273-304); Potassium 3.6 MMOL/L (3.5-5.1)
[2022-10-04] MEDS: ONDANSETRON 4 MG/2 ML VIAL IV PRN (06:43)
[2022-10-04] MEDS: INSULIN LISPRO 100 UNIT/ML SUBCUT SCH ×4 (07:54→20:12)
[2022-10-04] MEDS ORDERED: lisinopriL 20 MG TABLET PO SCH (09:00)
[2022-10-04] MEDS: carvediloL 12.5 MG TABLET PO SCH ×2 (09:20→17:20)
[2022-10-04] MEDS: BACILLUS COAGULANS CAPLET PO SCH ×2 (09:20→20:13)
[2022-10-04] MEDS: GABAPENTIN 100 MG CAPSULE PO SCH (09:20)
[2022-10-04] MEDS: CLOPIDOGREL 75 MG TABLET PO SCH (09:20)
[2022-10-04] MEDS: POLYETHYLENE GLYCOL POWDER 17 GM PACK PO SCH ×2 (09:20→20:12)
[2022-10-04] MEDS: FUROSEMIDE 40 MG/4 ML VIAL IV SCH ×2 (09:20→17:20)
[2022-10-04] MEDS: PANTOPRAZOLE 40 MG VIAL IV SCH ×2 (09:21→20:10)
[2022-10-04] MEDS: MORPHINE 2 MG/1 ML SYRINGE IV PRN ×3 (12:39→23:42)
[2022-10-04] MEDS: GABAPENTIN 300 MG CAPSULE PO SCH ×2 (17:21→20:13)
[2022-10-04] MEDS: ASPIRIN CHEW 81 MG TABLET PO SCH (20:09)
[2022-10-04] MEDS: TOPIRAMATE 25 MG TABLET PO SCH (20:09)
[2022-10-04] MEDS: ROSUVASTATIN 20 MG TABLET PO SCH (20:09)
[2022-10-05 05:07] LABS: Basophils % 0.4 % (0.0-0.8); Eosinophils # 0.7 10*3/uL (0.0-0.87); Eosinophils % 6.4 % (0.00-10.9); Hemoglobin 8.1 GM/DL (12.0-16.0); Immature Granulocytes % 0.6 %; Immature Granulocytes Absolute 0.06 #; Lymphocytes # 3.8 10*3/uL (1.4-4.0); Lymphocytes % 37.2 % (21.3-54.2); Mean Corpuscular HGB Conc 31.2 GM/DL (32-36); Mean Corpuscular Volume 95.2 FL (87-102); Mean Platelet Volume 10.1 FL (9.6-12.0); Monocytes # 0.7 10*3/uL (0.11-0.8); Monocytes % 6.8 % (1.7-12.7); Neutrophils % 48.6 % (38.7-73.9); Platelet Count 290 T/CUMM (130-400); Red Blood Count 2.73 MC/CUMM (3.8-5.5); White Blood Count 10.2 T/CUMM (4-12)
[2022-10-05 05:25] LABS: Calcium 8.7 MG/DL (8.5-10.1); Osmolality,Calculated 283.3 MOS/KG (273-304); Potassium 3.6 MMOL/L (3.5-5.1)
[2022-10-05] MEDS: MORPHINE 2 MG/1 ML SYRINGE IV PRN (06:02)
[2022-10-05] MEDS: INSULIN LISPRO 100 UNIT/ML SUBCUT SCH ×3 (08:17→17:35)
[2022-10-05] MEDS: GABAPENTIN 300 MG CAPSULE PO SCH ×2 (08:32→16:50)
[2022-10-05] MEDS: carvediloL 25 MG TABLET PO SCH ×2 (08:33→17:34)
[2022-10-05] MEDS: BACILLUS COAGULANS CAPLET PO SCH (08:33)
[2022-10-05] MEDS: CLOPIDOGREL 75 MG TABLET PO SCH (08:33)
[2022-10-05] MEDS: PANTOPRAZOLE 40 MG VIAL IV SCH (08:34)
[2022-10-05] MEDS: POLYETHYLENE GLYCOL POWDER 17 GM PACK PO SCH (08:34)
[2022-10-05] MEDS: FUROSEMIDE 40 MG/4 ML VIAL IV SCH (08:35)
[2022-10-05] MEDS: carvediloL 12.5 MG TABLET PO SCH (08:55)
[2022-10-05] MEDS ORDERED: lisinopriL 20 MG TABLET PO SCH (09:00)
[2022-10-05] MEDS ORDERED: cloNIDine 0.1 MG TABLET PO SCH (09:00)
[2022-10-05] MEDS ORDERED: MORPHINE 2 MG/1 ML SYRINGE IV PRN (11:13)
[2022-10-05] MEDS ORDERED: INSULIN LISPRO 100 UNIT/ML SUBCUT SCH (17:00)
[2022-10-05 17:40] VITALS: BP 130/68
[2022-10-05] MEDS ORDERED: INSULIN GLARGINE 100 UNIT/ML SUBCUT SCH (21:00)
[2022-10-06] MEDS ORDERED: FUROSEMIDE 40 MG TABLET PO SCH (09:00)
== END 2022-10-05 18:51 | disposition home health service (06) | DRG 194 ==
LOC: EDUNIT# → N.ED 13:20 → SUATTDRO 15:30 → N.EDINP 15:30 → N.TELEN 16:50
PROVIDERS: ADMIT Internal Medicine; ATTEND Internal Medicine